=== PATIENT | female | born 1935 | race Caucasian/White ===

== ENCOUNTER 2018-08-09 10:53 | Inpatient (IN) | payer OTHER, MEDICAID ==
[2018-08-09] MEDS: ACETAMINOPHEN 500 MG TAB PO (10:00)
[2018-08-09] MEDS: DEXAMETHASONE 4 MG/ML 1 ML INJ IV (12:18)
[2018-08-09] MEDS: LACTATED RINGER'S 1,000 ML IV ×3 (12:19→19:59)
[2018-08-09] MEDS: ACETAMINOPHEN 1000MG/100ML IV 100 ML IVPB (12:30)
[2018-08-09] MEDS ORDERED: TRANEXAMIC ACID 1GM/100ML(PMX) 200 ML (12:54)
[2018-08-09] MEDS ORDERED: FENTAnyl 50 MCG/ML VIAL (15:47)
[2018-08-09] MEDS ORDERED: CEFAZOLIN 1 GM INJ (16:09)
[2018-08-09] MEDS: TRANEXAMIC ACID 1GM/100ML(PMX) 100 ML PRE-OP X1 IVPB (16:10)
[2018-08-09] MEDS ORDERED: PROPOFOL 20 ML (16:10)
[2018-08-09] MEDS ORDERED: ONDANSETRON 4 MG INJ (16:10)
[2018-08-09] MEDS ORDERED: FAMOTIDINE 20 MG INJ (16:10)
[2018-08-09] MEDS: BACITRACIN 50000 UNITS INJ (16:36)
[2018-08-09] MEDS: POLYMYXIN B 500000 UNIT INJ (16:36)
[2018-08-09] MEDS: TRANEXAMIC ACID 1GM/100ML(PMX) 100 ML INTRA-OP X1 IVPB (17:42)
[2018-08-09] MEDS ORDERED: NALOXONE (0.4 MG/ML) INJ IV (18:00)
[2018-08-09] MEDS ORDERED: NACL 0.9% 3 ML SYG IV (18:00)
[2018-08-09] MEDS ORDERED: ROPIVACAINE 0.5 % 30 ML VIAL (18:05)
[2018-08-09] MEDS ORDERED: hydrALAzine 20 MG INJ IV (19:00)
[2018-08-09] MEDS ORDERED: DIPHENHYDRAMINE 50 MG INJ IV (19:00)
[2018-08-09] MEDS ORDERED: HYDROmorphONE 1 MG/5 ML IV SYRINGE IV ×2 (19:00)
[2018-08-09] MEDS ORDERED: FENTAnyl 50 MCG/ML VIAL IV (19:00)
[2018-08-09] MEDS ORDERED: ONDANSETRON 4 MG INJ IV (19:00)
[2018-08-09] MEDS ORDERED: PROCHLORPERAZINE 10 MG INJ IV (19:00)
[2018-08-09] MEDS ORDERED: MEPERIDINE 25 MG INJ IV (19:00)
[2018-08-09] MEDS: CLINDAMYCIN 900 MG/D5W (PMX) 50 ML IVPB (19:59)
[2018-08-09] MEDS: GABAPENTIN 100 MG CAP PO (20:05)
[2018-08-09 20:31] LABS: ADD MAN DIFF? NO
[2018-08-09 20:33] LABS: ABNORMAL IP MESSAGE 1; BASOPHILS % 0.1 % (0.0-2.0); HEMATOCRIT 35.8 % (37.0-47.0); HEMOGLOBIN 11.3 g/dl (12.0-16.0); LYMPHOCYTES # 0.4 10^3/ul (0.8-2.9); LYMPHOCYTES % 5.3 % (15.0-51.0); MEAN CORPUSCULAR HGB CONC 31.6 g/dl (32.0-37.0); MEAN PLATELET VOLUME 11.3 fl (7.4-10.4); MONOCYTE # 0.1 10^3/ul (0.3-0.9); MONOCYTES % 1.4 % (0.0-11.0); NEUTROPHIL # 6.7 10^3/ul (1.6-7.5); NEUTROPHILS % 92.9 % (39.0-77.0); PLATELET COUNT 163 10^3/UL (140-415); RED BLOOD COUNT 3.89 10^6/ul (4.20-5.40); RED CELL DISTRIBUTION WIDTH 13.9 % (11.5-14.5)
[2018-08-09 20:33] LABS: WHITE BLOOD COUNT 7.2 10^3/ul (4.8-10.8)
[2018-08-09 20:43] LABS: POSITIVE DIFF @See below
[2018-08-09 20:49] LABS: ALANINE AMINOTRANSFERASE 18 IU/L (13-69); ALBUMIN 3.6 g/dl (3.3-4.9); ALBUMIN/GLOBULIN RATIO 1.33; ALKALINE PHOSPHATASE 82 IU/L (42-121); ANION GAP 8 (5-13); ASPARTATE AMINO TRANSFERASE 23 IU/L (15-46); BILIRUBIN,INDIRECT 0.3 mg/dl (0-1.1); BILIRUBIN,TOTAL 0.3 mg/dl (0.2-1.3); BLOOD UREA NITROGEN 25 mg/dl (7-20); CALCIUM 8.6 mg/dl (8.4-10.2); CARBON DIOXIDE 26 mmol/L (21-31); CHLORIDE 106 mmol/L (97-110); CREATININE 0.87 mg/dl (0.44-1.00); GLUCOSE 156 mg/dl (70-220); POTASSIUM 4.3 mmol/L (3.5-5.1); SODIUM 140 mmol/L (135-144); TOTAL PROTEIN 6.3 g/dl (6.1-8.1)
[2018-08-10] MEDS: CLINDAMYCIN 900 MG/D5W (PMX) 50 ML IVPB ×2 (02:56→10:21)
[2018-08-10 05:21] LABS: ADD MAN DIFF? NO
[2018-08-10 05:31] LABS: BASOPHILS % 0.1 % (0.0-2.0); HEMATOCRIT 32.2 % (37.0-47.0); HEMOGLOBIN 10.7 g/dl (12.0-16.0); LYMPHOCYTES # 0.8 10^3/ul (0.8-2.9); LYMPHOCYTES % 7.2 % (15.0-51.0); MEAN CORPUSCULAR HEMOGLOBIN 29.6 pg (29.0-33.0); MEAN CORPUSCULAR HGB CONC 33.2 g/dl (32.0-37.0); MEAN CORPUSCULAR VOLUME 89.2 fl (82.0-101.0); MEAN PLATELET VOLUME 12.3 fl (7.4-10.4); MONOCYTE # 0.9 10^3/ul (0.3-0.9); NEUTROPHIL # 9.3 10^3/ul (1.6-7.5); NEUTROPHILS % 84.3 % (39.0-77.0); PLATELET COUNT 151 10^3/UL (140-415); RED BLOOD COUNT 3.61 10^6/ul (4.20-5.40)
[2018-08-10 06:01] LABS: ANION GAP 6 (5-13); BLOOD UREA NITROGEN 26 mg/dl (7-20); CALCIUM 8.6 mg/dl (8.4-10.2); CARBON DIOXIDE 26 mmol/L (21-31); CHLORIDE 108 mmol/L (97-110); CREATININE 0.79 mg/dl (0.44-1.00); GLUCOSE 103 mg/dl (70-220); SODIUM 140 mmol/L (135-144)
[2018-08-10 06:06] LABS: POTASSIUM 3.8 mmol/L (3.5-5.1)
[2018-08-10] MEDS: PANTOPRAZOLE (EC) 40 MG TAB PO (06:08)
[2018-08-10] MEDS: DOCUSATE SODIUM 100 MG CAP PO ×2 (09:15→20:15)
[2018-08-10] MEDS: oxyCODONE 5 MG TAB PO (09:16)
[2018-08-10] MEDS: GABAPENTIN 100 MG CAP PO ×3 (09:16→20:15)
[2018-08-10] MEDS: ASPIRIN (EC) 81 MG TAB PO ×2 (09:16→20:15)
[2018-08-10] MEDS: DONEPEZIL 10 MG TAB PO (09:18)
[2018-08-10] MEDS ORDERED: ONDANSETRON 4 MG INJ IV (18:00)
[2018-08-10] MEDS: LACTATED RINGER'S 1,000 ML IV (20:15)
[2018-08-11] MEDS: hydrALAzine 20 MG INJ IV (03:23)
[2018-08-11 05:29] LABS: ADD MAN DIFF? NO
[2018-08-11 05:33] LABS: BASOPHILS % 0.2 % (0.0-2.0); EOSINOPHILS % 0.1 % (0.0-7.0); HEMATOCRIT 33.5 % (37.0-47.0); HEMOGLOBIN 11.2 g/dl (12.0-16.0); LYMPHOCYTES # 1.1 10^3/ul (0.8-2.9); LYMPHOCYTES % 13.4 % (15.0-51.0); MEAN CORPUSCULAR HEMOGLOBIN 29.7 pg (29.0-33.0); MEAN CORPUSCULAR HGB CONC 33.4 g/dl (32.0-37.0); MEAN CORPUSCULAR VOLUME 88.9 fl (82.0-101.0); MEAN PLATELET VOLUME 11.6 fl (7.4-10.4); MONOCYTES % 11.8 % (0.0-11.0); NEUTROPHIL # 6.2 10^3/ul (1.6-7.5); PLATELET COUNT 146 10^3/UL (140-415); RED BLOOD COUNT 3.77 10^6/ul (4.20-5.40); RED CELL DISTRIBUTION WIDTH 14.6 % (11.5-14.5)
[2018-08-11 05:33] LABS: WHITE BLOOD COUNT 8.4 10^3/ul (4.8-10.8)
[2018-08-11 06:06] LABS: ANION GAP 6 (5-13); BLOOD UREA NITROGEN 19 mg/dl (7-20); CALCIUM 8.7 mg/dl (8.4-10.2); CARBON DIOXIDE 27 mmol/L (21-31); CHLORIDE 106 mmol/L (97-110); CREATININE 0.72 mg/dl (0.44-1.00); GLUCOSE 97 mg/dl (70-220); POTASSIUM 3.8 mmol/L (3.5-5.1); SODIUM 139 mmol/L (135-144)
[2018-08-11] MEDS: PANTOPRAZOLE (EC) 40 MG TAB PO (06:36)
[2018-08-11] MEDS: LACTATED RINGER'S 1,000 ML IV (07:11)
[2018-08-11] MEDS: DOCUSATE SODIUM 100 MG CAP PO ×2 (08:51→20:44)
[2018-08-11] MEDS: GABAPENTIN 100 MG CAP PO ×3 (08:51→20:45)
[2018-08-11] MEDS: oxyCODONE 5 MG TAB PO ×2 (08:51→11:53)
[2018-08-11] MEDS: DONEPEZIL 10 MG TAB PO (08:51)
[2018-08-11] MEDS: ASPIRIN (EC) 81 MG TAB PO ×2 (08:51→20:44)
[2018-08-12 04:57] LABS: ADD MAN DIFF? NO
[2018-08-12 05:06] LABS: WHITE BLOOD COUNT 7.1 10^3/ul (4.8-10.8)
[2018-08-12 05:06] LABS: BASOPHILS % 0.4 % (0.0-2.0); EOSINOPHILS # 0.1 10^3/ul (0.0-0.5); EOSINOPHILS % 0.8 % (0.0-7.0); HEMATOCRIT 32.5 % (37.0-47.0); HEMOGLOBIN 10.9 g/dl (12.0-16.0); LYMPHOCYTES # 1.1 10^3/ul (0.8-2.9); LYMPHOCYTES % 15.6 % (15.0-51.0); MEAN CORPUSCULAR HEMOGLOBIN 29.8 pg (29.0-33.0); MEAN CORPUSCULAR HGB CONC 33.5 g/dl (32.0-37.0); MEAN CORPUSCULAR VOLUME 88.8 fl (82.0-101.0); MEAN PLATELET VOLUME 11.5 fl (7.4-10.4); MONOCYTES % 14.7 % (0.0-11.0); NEUTROPHIL # 4.8 10^3/ul (1.6-7.5); NEUTROPHILS % 68.2 % (39.0-77.0); PLATELET COUNT 152 10^3/UL (140-415); RED BLOOD COUNT 3.66 10^6/ul (4.20-5.40); RED CELL DISTRIBUTION WIDTH 14.6 % (11.5-14.5)
[2018-08-12 05:23] LABS: ANION GAP 5 (5-13); BLOOD UREA NITROGEN 19 mg/dl (7-20); CALCIUM 8.4 mg/dl (8.4-10.2); CARBON DIOXIDE 29 mmol/L (21-31); CHLORIDE 106 mmol/L (97-110); CREATININE 0.73 mg/dl (0.44-1.00); GLUCOSE 111 mg/dl (70-220); SODIUM 140 mmol/L (135-144)
[2018-08-12] MEDS: PANTOPRAZOLE (EC) 40 MG TAB PO (06:34)
[2018-08-12] MEDS: MAGNESIUM HYDROXIDE 30ML CUP PO (07:09)
[2018-08-12] MEDS: oxyCODONE 5 MG TAB PO ×2 (07:09→17:26)
[2018-08-12] MEDS: ASPIRIN (EC) 81 MG TAB PO ×2 (08:46→20:10)
[2018-08-12] MEDS: DONEPEZIL 10 MG TAB PO (08:47)
[2018-08-12] MEDS: GABAPENTIN 100 MG CAP PO ×3 (08:47→20:10)
[2018-08-12] MEDS: DOCUSATE SODIUM 100 MG CAP PO ×2 (08:47→20:09)
[2018-08-13 05:17] LABS: ADD MAN DIFF? NO
[2018-08-13 05:25] LABS: BASOPHILS % 0.5 % (0.0-2.0); EOSINOPHILS # 0.1 10^3/ul (0.0-0.5); EOSINOPHILS % 2.2 % (0.0-7.0); HEMATOCRIT 31.9 % (37.0-47.0); HEMOGLOBIN 10.6 g/dl (12.0-16.0); LYMPHOCYTES # 1.2 10^3/ul (0.8-2.9); LYMPHOCYTES % 18.4 % (15.0-51.0); MEAN CORPUSCULAR HEMOGLOBIN 29.4 pg (29.0-33.0); MEAN CORPUSCULAR HGB CONC 33.2 g/dl (32.0-37.0); MEAN CORPUSCULAR VOLUME 88.4 fl (82.0-101.0); MEAN PLATELET VOLUME 12.4 fl (7.4-10.4); MONOCYTE # 0.8 10^3/ul (0.3-0.9); MONOCYTES % 13.1 % (0.0-11.0); NEUTROPHIL # 4.1 10^3/ul (1.6-7.5); NEUTROPHILS % 65.5 % (39.0-77.0); RED BLOOD COUNT 3.61 10^6/ul (4.20-5.40); RED CELL DISTRIBUTION WIDTH 14.6 % (11.5-14.5)
[2018-08-13 05:25] LABS: WHITE BLOOD COUNT 6.3 10^3/ul (4.8-10.8)
[2018-08-13 05:54] LABS: PLATELET COUNT 109 10^3/UL (140-415); POSITIVE DIFF @See below
[2018-08-13] MEDS: PANTOPRAZOLE (EC) 40 MG TAB PO (06:00)
[2018-08-13 06:03] LABS: ANION GAP 4 (5-13); BLOOD UREA NITROGEN 21 mg/dl (7-20); CALCIUM 8.3 mg/dl (8.4-10.2); CARBON DIOXIDE 29 mmol/L (21-31); CHLORIDE 104 mmol/L (97-110); CREATININE 0.61 mg/dl (0.44-1.00); GLUCOSE 97 mg/dl (70-220); POTASSIUM 5.9 mmol/L (3.5-5.1); SODIUM 137 mmol/L (135-144)
[2018-08-13 06:11] LABS: ADD UMIC NO; UR ASCORBIC ACID 40 mg/dL (NEGATIVE); UR BILIRUBIN (Dip) NEGATIVE (NEGATIVE); UR BLOOD (Dip) NEGATIVE (NEGATIVE); UR CLARITY CLEAR (CLEAR); UR COLOR YELLOW (YELLOW); UR GLUCOSE (Dip) NEGATIVE (NEGATIVE); UR KETONES (Dip) NEGATIVE (NEGATIVE); UR LEUKOCYTE ESTERASE (Dip) NEGATIVE Leu/ul (NEGATIVE); UR NITRITE (Dip) NEGATIVE (NEGATIVE); UR SPECIFIC GRAVITY (Dip) 1.025 (1.003-1.030); UR TOTAL PROTEIN (Dip) NEGATIVE (NEGATIVE); UR UROBILINOGEN (Dip) 1+ mg/dL (NEGATIVE)
[2018-08-13] MEDS: ASPIRIN (EC) 81 MG TAB PO (08:54)
[2018-08-13] MEDS: GABAPENTIN 100 MG CAP PO ×2 (08:55→12:37)
[2018-08-13] MEDS: oxyCODONE 5 MG TAB PO ×2 (08:55→13:34)
[2018-08-13] MEDS: DONEPEZIL 10 MG TAB PO (08:55)
[2018-08-13 09:57] LABS: BAND NEUTROPHILS #M 0.1 10^3/ul (0.0-0.6); BAND NEUTROPHILS % (M) 2 % (0-4); GIANT THROMBO% (M) 2 % (0-0); LYMPHOCYTES #M 1.3 10^3/ul (0.8-2.9); LYMPHOCYTES % (M) 21 % (15-51); MONOCYTE #M 0.5 10^3/ul (0.3-0.9); MONOCYTES % (M) 9 % (0-11); OVALOCYTES 1+ (0-0); PLATELET ESTIMATE DECREASED; POIKILOCYTOSIS 1+ (0-0); SEG NEUT #M 4.3 10^3/ul (1.6-7.5); SEGMENTED NEUTROPHILS (M) % 68 % (39-77); SMUDGE%M 4 % (0-0)
[2018-08-13] MEDS: SODIUM POLYSTYRENE 15 GM KIT (POWDER + SORBITOL) PO (10:39)
[2018-08-13] MEDS: SOD CHLORIDE 0.9% 250 ML IV (10:39)
[2018-08-13 15:19] LABS: POTASSIUM 4.3 mmol/L (3.5-5.1)
== END 2018-08-13 17:30 | disposition home health service (06) | DRG 482 ==
LOC: REC 10:53 → MS1 08-10 21:31
PROC: 0QS904Z Reposition Left Femoral Shaft with Internal Fixation Device, Open Approach (ICD-10-PCS; principal; 2018-08-09 13:30)
PROC: 0QU90JZ Supplement Left Femoral Shaft with Synthetic Substitute, Open Approach (ICD-10-PCS; 2018-08-09 13:30)
DX: M84.352A Stress fracture, left femur, initial encounter for fracture (principal); F03.90 Unspecified dementia, unspecified severity, without behavioral disturbance, psychotic disturbance, mood disturbance, and anxiety; Z96.642 Presence of left artificial hip joint; Z96.652 Presence of left artificial knee joint
CPT/HCPCS: 73550; 80048; 80053; 81003; 84132; 85025; 86850; 86900; 86901; 86920; 87081; 97110; 97116; 97161; 97167; 97530; 97535